=== PATIENT | female | born 1990 | race Caucasian/White ===

== ENCOUNTER 2017-07-05 20:34 | Emergency (ER) | END 2017-07-06 02:09 | disposition home or self-care (01) ==

== ENCOUNTER 2017-11-09 10:05 | Outpatient (CLI) | END 2017-11-09 12:35 | disposition home or self-care (01) ==

== ENCOUNTER 2018-01-20 06:50 | Inpatient (IN) | END 2018-01-22 13:40 | disposition home or self-care (01) | DRG 807 ==